=== PATIENT | female | born 1950 | race Two or more races ===

== ENCOUNTER → 2016-05-18 | Outpatient (CLI) | payer OTHER ==
--- NOTE | 2016-05-18 14:38 | DX ---
Left wrist series 4 views 1255 hours. History: Left wrist pain without trauma. Findings: Marked degenerative changes are present at the first carpometacarpal joint with mild proxim al subluxation. The remainder the joint spaces are normal. There are no fractures or abnormal lytic o r sclerotic osseous lesions. Soft tissues are unremarkable. Impression: 1. Marked degenerative changes first carpal metacarpal joint. No additional abnormality seen.
--- NOTE | 2016-05-18 14:42 | DX ---
Left hand series 3 views 1254 hours. History: Pain without trauma. Findings: Mild joint space narrowing with hypertrophic osteophytes are present involving the DIP and PIP joints of the second through fifth digits as well as the first interphalangeal joint. Marked dege nerative changes are present at the first carpometacarpal joint. There is incidental subchondral cyst base of the left second proximal phalanx at the MCP joint with only mild joint space narrowing. Ther e are no lytic or sclerotic lesions. Mineralization is normal. There is mild proximal subluxation of the first carpometacarpal joint. No additional subluxations are evident. Soft tissues are unremarkabl e. Impression: 1. Underlying osteoarthritis suspected. Findings are most prominent at the first carpometacarpal join t.
== END ==
LOC: CIMAGING 12:43
PROVIDERS: ATTEND Family Medicine
DX: M79.642 Pain in left hand (principal); M25.532 Pain in left wrist; M12.9 Arthropathy, unspecified
CPT/HCPCS: 73110-PO; 73130-PO

== ENCOUNTER → 2016-05-30 | Outpatient (CLI) | payer OTHER ==
--- NOTE | 2016-05-30 18:47 | DX ---
DEXA Bone Mineral Densitometry Clinical Indications: Postmenopausal, steroids in the past, osteoporotic medication, diabetes Comparison: None Technique: Bone Mineral Densitometry (BMD) by Dual Energy X-Ray Absorptiometry (DEXA) was performed utilizing the [email or web address] scanner. The lumbar spine was evaluated in the AP projection. The bilat eral hips and forearm were evaluated in the AP projection. Vertebral fracture assessment was also pe rformed. AP Lumbar Spine: The L1 and V0nwqfodyxu bodies were evaluated. L3 and L4 are excluded due to prior fusion surgery BMD: 1.138 gm/cm2 T-score: -0.3 SD Z-score: 0.9 SD AP Left Hip: Neck BMD: 0.862 gm/cm2 T-score: -1.3 SD Z-score: 0 SD AP Right Hip: Total BMD: 0.799 gm/cm2 T-score: -1.7 SD Z-score: 0.6 SD AP Left Forearm, 04/24: BMD: 0.855 gm/cm2 T-score: -0.2 SD Z-score: 1.4 SD Vertebral Fracture Assessment: No significant fracture deformity. No prevertebral aortic calcificati on, significant marginal bone spurring, facet arthrosis, or intrinsic vertebral body sclerosis that would effect the accuracy of the lumbar spine BMD measurement. Conclusion: Considering the lowest measured site, the patient has low bone density. The ten year FRAX risk for any major osteoporotic fracture is 10% and for a hip fracture is 1.4%. Any bone loss in this patient is probably related to aging or estrogen deficiency. To prevent osteoporosis and to promote the patient's bone density, the following recommendations shou ld be considered: 1. Pursue a regular regimen of weightbearing and muscle strengthening exercises in order to reduce t he risk of falls and fractures (as tolerated by the patient's general medical condition). 2. Ensure that daily dietary calcium uptake is maximized. 3. Consider checking the serum vitamin D level. Ensure that intake of vitamin D is 600 IU per day (fo r all ages through 70) . 4. Consider follow-up DEXA scan in two years to assess the rate of bone loss in this patient.
== END ==
LOC: BRMIMAGING 11:19
PROVIDERS: ATTEND Family Medicine
DX: Z13.820 Encounter for screening for osteoporosis (principal); E11.9 Type 2 diabetes mellitus without complications; Z78.0 Asymptomatic menopausal state; M85.80 Other specified disorders of bone density and structure, unspecified site

== ENCOUNTER → 2016-06-02 | Outpatient (CLI) | payer OTHER ==
--- NOTE | 2016-06-02 16:40 | MR ---
MRI of the Lumbar Spine (Without Contrast) Clinical Indications: Right-sided low back pain and right-sided sciatica. Technique: Sagittal and axial T1 and T2 MR sequences of the lumbar spine without contrast. Comparison Study: May 31, 2015. Findings: Features of instrumentation and fusion from L4 through S1 again noted with bilateral pedicl e screws at all 3 levels and posterior cristiane fixation, unchanged. L1-L2: No disk herniation or stenosis. L2-L3: Disk desiccation and diffuse annular bulging, with secondary moderate acquired central canal s tenosis. Foramina appear mildly narrowed bilaterally, left greater than right. L3-L4: There is 4 mm degenerative anterolisthesis of L3 upon L4. There is secondary moderate to sever e acquired central canal stenosis which appears similar to previous study. The right neural foramina is moderate to severely stenotic secondary to annular bulging within the foramina and spondylolisthes is, slightly more severe when compared to previous exam. The left neural foramen is patent. L4-L5: Prior diskectomy and fusion. There is stable 4 mm anterolisthesis of L4 upon L5. Neural forami na are widely patent. L5-S1: Postsurgical changes again noted without neural impingement or recurrent central stenosis. Impression: 1. Status post instrumentation and fusion from L4 through S1. No change in appearance of the hardware construct or alignment. 2. Grade 1 degenerative anterolisthesis of L3 upon L4, with associated secondary moderate to severe a cquired central canal stenosis and advanced right neural foraminal stenosis. 3. Other level findings as above.
== END ==
LOC: FIMAGING 14:55
PROVIDERS: ATTEND Physician Assistant
DX: M54.41 Lumbago with sciatica, right side (principal); Z98.1 Arthrodesis status; M51.36 Other intervertebral disc degeneration, lumbar region; M48.06 Spinal stenosis, lumbar region; M43.16 Spondylolisthesis, lumbar region

== ENCOUNTER 2016-06-25 05:55 | Inpatient (IN) | payer OTHER ==
[2016-06-25] MEDS ORDERED: LR 1,000 ML IV ONE (06:44)
[2016-06-25] MEDS ORDERED: LIDOCAINE 1% 5 ML SDV ID PRN (06:44)
[2016-06-25] MEDS ORDERED: BUPIVACAINE/EPI 0.25% 30 ML SDV ONE (06:45)
[2016-06-25] MEDS ORDERED: BACITRACIN 50,000 UNITS/10 ML SYR IRR ONE (06:45)
[2016-06-25] MEDS ORDERED: THROMBIN (RECOMBINANT) 5,000 UNIT VIAL TP ONE (06:45)
[2016-06-25] MEDS ORDERED: ceFAZolin 2 GM/DEXTROSE 100 ML IV ONE (07:00)
[2016-06-25] MEDS ORDERED: CHLORHEXIDINE GLUC HIBICLENS 118 ML BTL TP ONE (07:00)
[2016-06-25] MEDS ORDERED: MIDAZOLAM 2 MG/2 ML VIAL ONE (07:15)
[2016-06-25] MEDS ORDERED: PROPOFOL 200 MG/20 ML VIAL ONE (07:27)
[2016-06-25] MEDS ORDERED: HYDROmorphONE/DILAUDID 2 MG/ML INJ ONE (07:27)
[2016-06-25] MEDS ORDERED: DEXMEDETOMIDINE HCL 200 MCG in NS 50 ML IV ONE (07:30)
[2016-06-25] MEDS ORDERED: SUCCINYLCHOLINE CHLORIDE*ANESTHESIA ONLY*200 MG/10 ML SYR IVP ONE (07:33)
[2016-06-25] MEDS ORDERED: DEXAMETHASONE 4 MG/ML VIAL ONE ×2 (07:33)
[2016-06-25] MEDS ORDERED: ONDANSETRON 4 MG/2 ML VIAL ONE (07:33)
[2016-06-25] MEDS ORDERED: LIDOCAINE 2% 5 ML SDV ONE (07:33)
[2016-06-25] MEDS ORDERED: ACETAMINOPHEN 500 MG TAB PO PRN (07:52)
[2016-06-25] MEDS ORDERED: DICYCLOMINE 10 MG CAP PO PRN (07:52)
[2016-06-25] MEDS ORDERED: RANITIDINE HCL 150 MG PO PRN (07:52)
[2016-06-25] MEDS ORDERED: ONDANSETRON DISINTEGRATING 4 MG TAB PO PRN (07:53)
[2016-06-25] MEDS ORDERED: NALOXONE HCL 0.4 MG/ML INJ IVP PRN (07:53)
[2016-06-25] MEDS ORDERED: DIAZEPAM 10 MG/2 ML SYR IVP PRN (07:53)
[2016-06-25] MEDS ORDERED: diphenhydrAMINE 25 MG CAP PO PRN (07:53)
[2016-06-25] MEDS ORDERED: HYDROCODONE/APAP 10/325 TAB PO PRN (07:53)
[2016-06-25] MEDS ORDERED: BISACODYL 10 MG SUPP PR PRN (07:53)
[2016-06-25] MEDS ORDERED: ACETAMINOPHEN 325 MG TAB PO PRN (07:53)
[2016-06-25] MEDS ORDERED: HYDROmorphONE/DILAUDID 6 MG/30 ML PCA IV PRN (07:53)
[2016-06-25] MEDS ORDERED: TEMAZEPAM 15 MG CAP PO PRN (07:53)
[2016-06-25] MEDS ORDERED: METHOCARBAMOL 750 MG TAB PO PRN (07:53)
[2016-06-25] MEDS ORDERED: ONDANSETRON 4 MG/2 ML VIAL IVP PRN (07:53)
[2016-06-25] MEDS ORDERED: MAGNESIUM HYDROXIDE 30 ML UDCUP PO PRN (07:53)
[2016-06-25] MEDS ORDERED: NS W/ 20 KCl/L 1,000 ML IV SCH (08:00)
[2016-06-25] MEDS ORDERED: KETAMINE 100 MG/10 ML SYR IVP ONE (08:17)
[2016-06-25] MEDS ORDERED: PHENYLEPHRINE HCL 100 MCG/ML SYR ONE (08:53)
[2016-06-25] MEDS ORDERED: PHENYLEPHRINE 10 MG/ML SDV ONE (09:50)
[2016-06-25] MEDS ORDERED: fentaNYL 100 MCG/2 ML INJ ONE (11:46)
[2016-06-25] MEDS ORDERED: HYDROmorphONE/DILAUDID 1 MG/ML SYR ONE (11:46)
--- NOTE | 2016-06-25 11:48 | SOAPPROG ---
SOAP Progress Note Assessment/Plan: S: Awake and alert. NAD. Pt with expected LBP O: AFVSS/PERRLA/EOMI no droop CN 2-12 grossly intact +lt touch 5/5 BUE/BLE = CDI CHEMA in place A/P: 66 yo female that is s/p removal of hardware at L4-S1 with new TLIF at L3/ 4 with L3-L5 PSF -orders in place -call with any questions or concerns -pt seen by Dr Pugh as well 06/25/16 11:45 ICD10 Worksheet Patient Problems: Problems Problem Status Onset Sciatica Active Arthrodesis status Acute Lumbar radicular pain Acute Lumbar stenosis Acute - ICD10 Problem Qualifiers (1) Lumbar stenosis (2) Lumbar radicular pain (3) Arthrodesis status
--- NOTE | 2016-06-25 13:41 | GOP ---
DATE OF OPERATION: 06/25/2016 SURGEON: Eli Pugh MD GOLD STAMPER: Jassi Wooten PA-C PREOPERATIVE DIAGNOSIS: 1. Adjacent segment disease with severe stenosis and spondylolisthesis L3-4 above a prior L4-5/5-1 fusion. 2. Bilateral lumbosacral radiculopathy. 3. Lumbar degenerative disk disease. POSTOPERATIVE DIAGNOSIS: 1. Adjacent segment disease with severe stenosis and spondylolisthesis L3-4 above a prior L4-5/5-1 fusion. 2. Bilateral lumbosacral radiculopathy. 3. Lumbar degenerative disk disease. PROCEDURE PERFORMED: Posterior-lateral and intervertebral arthrodesis with decompression and fusion L3-4 (18469), removal of posterior segmental hardware L4-L5-S1 (98037), same-incision bone graft barnes rvest, posterior segmental instrumentation at L3, L4, L5, this was new instrumentation placed at tho se levels (66336), placement of expandable biomechanical intervertebral device without anchors L3-4 (70916), microscope. FINDINGS: ESTIMATED BLOOD LOSS: 250 cc. DESCRIPTION OF PROCEDURE: The patient was taken to the operating room, placed in supine position. General anesthesia was begun. She was then flipped prone onto the Demetris table. Care was taken to pad all points of contact. Her back was sterilely prepped and draped and the O-arm was introduced sterilely to the field. We made a midline incision, opening the prior incision, extending caudally about 1 cm, and extended it rostrally about 5 cm, for a total length of about a 12 cm incision. The subcutaneous tissue was dissected with the plasma blade down through the fascia and a subperiosteal dissection was made down the lamina. We exposed the prior hardware, including crosslink, and all o f this was removed. There was solid, posterolateral bony union from L4 to S1. In fact, there was a large amount of posterolateral bone. It was completely solid cortical bone. We decorticated all t his after removing all of her prior hardware and exploring the fusion. We tested the Stealth refere nce frame to the L3 spinous process, performed an O-arm spin, and using frameless Stealth stereotaxy , placed pedicle screws bilaterally at L3, L4, and L5. We then performed an O-arm spin. All the barnes rdware was in excellent position. It all stimulated at acceptable levels. We placed 70 mm rods michael n over the hardware and distracted between L3 and L5 and got good reduction of the spondylolisthesis in the process. We then removed all the soft tissue to the bone at L3-4 and then harvested the inf erior L4 spinous process for autologous grafting purposes. We drilled the inferior L3 and the rostr al L4 lamina, performed bilateral decompressions under the microscope. There was severe stenosis pr esent and we performed an excellent decompression. We harvested this bone for autologous grafting p urposes. We then removed the right L3-4 facet, identified the exiting L3 nerve root, incised the L3 -4 disk, removed the disk and the cartilaginous endplates. It was a very degenerative disk. There was actually very little cartilage present in the disk space itself. We then sized this space with a trial and chose a 7 x 28 mm expandable cage, packed the disk space with bone autograft and 1 mg of BMP. It was inserted into the disk and expanded under fluoroscopic guidance. We were happy with t he position of the device. All the cap screws had been final tightened on the tulips and there was good lumbar lordosis on the final x-ray. We decorticated all the posterolateral bone posterolateral ly to create arthrodesis at L3-4 and then placed bony autograft and BMP posterolaterally again. We placed a subfascial drain and closed the incision in multiple layers using Vicryl sutures. COMPLICATIONS: None. INDICATIONS FOR THE PROCEDURE: The patient is a 66-year-old with a successful L4-5/5-1 fusion a few years ago. She developed increasing back pain and bilateral lumbosacral pain and she also had blad alan incontinence. An MRI of the lumbar spine did demonstrate stenosis at L3-4, but no clear explana tion in the lumbar spine for incontinence of neurogenic origin. She had terrible pain, however, and spondylolisthesis, and we suggested adjacent segment fusion. She had early adjacent segment diseas e, even at L2-3, but none in my view wanted surgery. She understood that she would likely need surg belén at some point in the future at L2-3. She knew there was risk of nerve injury, spinal fluid leak , continued symptoms, pseudarthrosis, screw and hardware malposition, malfunction, and she wanted to proceed despite these risks. She knew it would take several weeks for her to recover from surgery and there is a chance that she would fail to see any benefit from the surgery. /[id number]/MODL
[2016-06-25] MEDS: busPIRone 10 MG TAB PO SCH ×2 (15:18→20:50)
[2016-06-25] MEDS: metFORMIN HCL 500 MG TAB PO SCH ×2 (15:19→20:49)
[2016-06-25] MEDS: FAMOTIDINE 20 MG/NACL 50 ML IV SCH ×2 (15:19→20:59)
[2016-06-25] MEDS: TOLTERODINE TARTRATE 2 MG EXT REL CAP PO SCH (15:20)
[2016-06-25] MEDS: SENNOSIDES/DOCUSATE SODIUM TAB PO SCH ×2 (15:20→20:50)
[2016-06-25] MEDS: POLYETHYLENE GLYCOL 3350 17 GM PKT PO SCH ×2 (15:20→20:57)
[2016-06-25] MEDS: PREGABALIN 75 MG CAP PO SCH ×3 (15:20→20:48)
[2016-06-25] MEDS: DIAZEPAM 5 MG TAB PO PRN ×2 (15:39→21:12)
[2016-06-25] MEDS: oxyCODONE IR 5 MG TAB PO PRN ×2 (18:34→21:12)
[2016-06-25] MEDS: LISINOPRIL 5 MG TAB PO SCH (20:47)
[2016-06-26 05:28] LABS: HEMATOCRIT 29.9 % (38.0-47.0); HEMOGLOBIN 9.8 g/dL (12.6-16.3)
[2016-06-26] MEDS: oxyCODONE IR 5 MG TAB PO PRN ×3 (05:50→21:17)
[2016-06-26] MEDS: HYDROmorphONE/DILAUDID 1 MG/ML SYR IVP PRN ×4 (06:58→23:01)
--- NOTE | 2016-06-26 07:06 | NEUSURGPN ---
Date of Surgery: 06/25/16 Post Op Day: 1 Assessment/Plan: Assessment: 66 yo female that is s/p removal of hardware at L4-S1 with new TLIF at L3/4 with L3-L5 PSF POD #1 Plan: -s/p fusion: pt with expected lower back pain, legs feel ok -post op xrays pending -[employer] W[employer]ER->PO meds -brace when out of bed -Teds/SCDs -CHEMA to be removed today -orders in place -call with any questions or concerns -pt seen by Dr Pugh as well -plan for dc tomorrow or Th06/25/16 11:45 Subjective: Awake and alert. NAD. Eating/drinking and voiding. Passing gas, no BM. No barnes /neck/chest/abd or gu complaints. No f/c/n/v/d. Objective: AFVSS/PERRLA/EOMI no droop CN 2-12 grossly intact +lt touch 5/5 BUE/BLE = CDI CHEMA in place Neuro Check Frequency: per routine Urinary Catheter in Place: No Catheter Insertion Date: 06/25/16 - Physician Discussed Patient with : Keaton Patient Seen by : Keaton Neurosurgery Physical Exam - Vitals, I&O, Labs I and O 06/25/16 06/26/16 06/27/16 05:59 05:59 05:59 Intake Total 5900 Output Total 5340 Balance 560 Weight 79.832 kg Intake: Oral (ml) 2350 IV Intake (ml) 2400 IV Infused (ml) 1150 NS W/ 20 KCl/L 1,000 ml @ 1050 75 mls/hr IV CONT MICHELL Rx #:[id number] ceFAZolin 1 GM/DEXTROSE 100 50 ml @ 200 mls/hr IV Q8HRS MICHELL Rx#:[id number] Output: Urine (ml) 4650 Catheter 4650 Estimated Blood Loss (ml) 350 Wound Drainage (ml) 340 Left Back Demetris Ashton 340 Other: Intake Quantity Yes Sufficient Vital Signs Temp Pulse Resp BP Pulse Ox 37 C 86 16 116/68 95 06/26/16 03:31 06/26/16 03:31 06/26/16 03:31 06/26/16 03:31 06/26/16 03:31 Laboratory Results 06/26/16 04:50 ICD10 Worksheet Patient Problems: Problems Problem Status Onset Arthrodesis status Acute Lumbar radicular pain Acute Lumbar stenosis Acute Sciatica Active - ICD10 Problem Qualifiers (1) Lumbar stenosis (2) Lumbar radicular pain (3) Arthrodesis status
[2016-06-26] MEDS: metFORMIN HCL 500 MG TAB PO SCH ×2 (08:49→21:02)
[2016-06-26] MEDS: TOLTERODINE TARTRATE 2 MG EXT REL CAP PO SCH (08:50)
[2016-06-26] MEDS: PREGABALIN 75 MG CAP PO SCH ×2 (08:50→21:03)
[2016-06-26] MEDS: FAMOTIDINE 20 MG/NACL 50 ML IV SCH ×2 (08:51→21:00)
[2016-06-26] MEDS: busPIRone 10 MG TAB PO SCH ×2 (08:51→21:00)
[2016-06-26] MEDS: SENNOSIDES/DOCUSATE SODIUM TAB PO SCH ×2 (09:06→21:04)
[2016-06-26] MEDS: LACTULOSE 20 GM/30 ML UDCUP PO PRN ×2 (15:42→21:17)
[2016-06-26] MEDS: LISINOPRIL 5 MG TAB PO SCH (21:01)
[2016-06-26] MEDS: DIAZEPAM 5 MG TAB PO PRN (23:01)
[2016-06-27] MEDS: DIAZEPAM 5 MG TAB PO PRN (05:41)
[2016-06-27] MEDS: POLYETHYLENE GLYCOL 3350 17 GM PKT PO SCH (05:42)
[2016-06-27] MEDS: oxyCODONE IR 5 MG TAB PO PRN (05:42)
[2016-06-27 07:31] VITALS: PULSE 77; RESP 15; TEMP 100.7; O2SAT 97
[2016-06-27 07:41] VITALS: BP 110/60
[2016-06-27] MEDS: TOLTERODINE TARTRATE 2 MG EXT REL CAP PO SCH (07:48)
[2016-06-27] MEDS: PREGABALIN 75 MG CAP PO SCH (07:48)
[2016-06-27] MEDS: metFORMIN HCL 500 MG TAB PO SCH (07:49)
[2016-06-27] MEDS: busPIRone 10 MG TAB PO SCH (07:49)
[2016-06-27] MEDS ORDERED: MAGNESIUM CITRATE 300 ML BOTTLE PO PRN (07:55)
[2016-06-27] MEDS ORDERED: oxyCODONE IR 5 MG TAB PO PRN (07:56)
--- NOTE | 2016-06-27 07:59 | NEUSURGPN ---
Date of Surgery: 06/25/16 Post Op Day: 2 Assessment/Plan: Assessment: 66 yo female that is s/p removal of hardware at L4-S1 with new TLIF at L3/4 with L3-L5 PSF POD #2 Plan: -neuro stable -post op xrays stable -pain control: will inc oxycodone to 5-10 mg every 4 hours -brace when out of bed -Teds/SCDs -constipation: suppository, Mg Citrate if needed -call with any questions or concerns -plan for dc later today if progresses or tomorrow am Subjective: Back pain currently controlled, described as a burning sensation. No LE symptoms Objective: Awake. Alert. PERRL. EOMI Following commands Muscle strength full at 5/5 Sensation intact Urinary Catheter in Place: No Catheter Insertion Date: 06/25/16 - Physician Discussed Patient with : Keaton Patient Seen by : Keaton Neurosurgery Physical Exam - Vitals, I&O, Labs I and O 06/26/16 06/27/16 06/28/16 05:59 05:59 05:59 Intake Total 5900 2000 Output Total 5340 1020 300 Balance 560 980 -300 Weight 79.832 kg Intake: Oral (ml) 2350 1950 IV Intake (ml) 2400 IV Infused (ml) 1150 50 Famotidine 20 mg/NaCl 50 50 ml @ 200 mls/hr IV Q12HRS MICHELL Rx#:[id number] NS W/ 20 KCl/L 1,000 ml @ 1050 75 mls/hr IV CONT MICHELL Rx #:[id number] ceFAZolin 1 GM/DEXTROSE 100 50 ml @ 200 mls/hr IV Q8HRS MICHELL Rx#:[id number] Output: Urine (ml) 4650 900 300 Catheter 4650 Toilet 900 300 Estimated Blood Loss (ml) 350 Wound Drainage (ml) 340 120 Left Back Demetris Ashton 340 120 Other: Intake Quantity Yes Yes Sufficient Number of Voids Toilet 1 1 Vital Signs Temp Pulse Resp BP Pulse Ox 38.2 C 77 15 110/60 97 06/27/16 07:28 06/27/16 07:28 06/27/16 07:28 06/27/16 07:40 06/27/16 07:28 Laboratory Results 06/26/16 04:50 ICD10 Worksheet Patient Problems: Problems Problem Status Onset Arthrodesis status Acute Lumbar radicular pain Acute Lumbar stenosis Acute Sciatica Active
[2016-06-27] MEDS: SENNOSIDES/DOCUSATE SODIUM TAB PO SCH (08:04)
[2016-06-27] MEDS ORDERED: FAMOTIDINE 20 MG TAB PO SCH (09:00)
[2016-06-27] MEDS: LACTULOSE 20 GM/30 ML UDCUP PO PRN (12:05)
[2016-06-27] MEDS ORDERED: morphINE SR 15 MG TAB PO SCH (22:00)
[2016-06-28] MEDS ORDERED: ENOXAPARIN 40 MG/0.4 ML SYR SC SCH (09:00)
== END 2016-06-27 17:40 | disposition home or self-care (01) | DRG 460 ==
LOC: F3N 05:55
PROVIDERS: ADMIT Neurological Surgery; ATTEND Neurological Surgery
DX: M43.16 Spondylolisthesis, lumbar region (principal); M51.36 Other intervertebral disc degeneration, lumbar region; M43.17 Spondylolisthesis, lumbosacral region; M51.26 Other intervertebral disc displacement, lumbar region; M48.06 Spinal stenosis, lumbar region; Z98.1 Arthrodesis status
CPT/HCPCS: 97116-GP; 97161-GP; 97165-GO; 97530-GP; 97535-GO; C1713; G8978-GP-CJ; G8979-GP-CI; G8987-GO-CJ; G8988-GO-CI; J0330; J0690; J1100; J1170; J2250; J2370; J2405; J2704; J3010

== ENCOUNTER → 2016-09-11 | Outpatient (CLI) | payer OTHER | LOC: CIMAGING 09:35 | PROVIDERS: ATTEND Nurse Practitioner | DX: Z98.1 Arthrodesis status (principal); M43.16 Spondylolisthesis, lumbar region | CPT/HCPCS: 72100-PO ==

== ENCOUNTER → 2016-12-09 | Outpatient (CLI) | payer OTHER | LOC: CIMAGING 15:23 | PROVIDERS: ATTEND Nurse Practitioner | DX: Z09 Encounter for follow-up examination after completed treatment for conditions other than malignant neoplasm (principal); Z98.1 Arthrodesis status | CPT/HCPCS: 72100-PO ==

== ENCOUNTER → 2017-05-10 | Outpatient (CLI) | payer OTHER | LOC: FIMAGING 13:03 | PROVIDERS: ATTEND Family Medicine | DX: Z12.31 Encounter for screening mammogram for malignant neoplasm of breast (principal) ==

== ENCOUNTER → 2017-07-31 | Outpatient (CLI) | payer OTHER | LOC: CIMAGING 20:19 | PROVIDERS: ATTEND Physician Assistant | DX: Z98.1 Arthrodesis status (principal) | CPT/HCPCS: 72100-PO ==

== ENCOUNTER → 2018-02-17 | Outpatient (CLI) | payer OTHER | LOC: CIMAGING 15:15 | PROVIDERS: ATTEND Physician Assistant | DX: G89.18 Other acute postprocedural pain (principal); Z98.1 Arthrodesis status | CPT/HCPCS: 72100-PO ==

== ENCOUNTER → 2018-08-15 | Outpatient (CLI) | payer OTHER | LOC: FIMAGING 12:40 | PROVIDERS: ATTEND Family Medicine | DX: Z12.31 Encounter for screening mammogram for malignant neoplasm of breast (principal) ==